=== PATIENT | male | born 1980 | race Caucasian/White ===

== ENCOUNTER 2018-11-07 16:55 | Emergency (ER) | payer MEDICAID ==
[~2018-11-07] VITALS: Ht 193 cm; Wt 94.3 kg
[2018-11-07 17:14] VITALS: Ht 193 cm; Wt 94.3 kg
[2018-11-07 18:44] LABS: BASOPHIL % 0.1 % (0-2); PLATELET COUNT 248 x10^3mcL (130-400); RED CELL DISTRIBUTION WIDTH 13.1 % (11.5-14.5)
[2018-11-07 19:02] LABS: ALKALINE PHOSPHATASE 119 U/L (46-116); ALT/SGPT 132 U/L (16-63); AST/SGOT 38 U/L (15-37); BILIRUBIN TOTAL 0.66 mg/dL (0.20-1.00); CALCIUM 8.3 mg/dL (8.5-10.1); CARBON DIOXIDE 26.6 mmol/L (21-32); CHLORIDE SERUM 101 mmol/L (98-107); GFR1 > 60 mL/min; GLUCOSE SERUM 165 mg/dL (74-106); SODIUM SERUM 138 mmol/L (136-145)
[2018-11-07 19:15] LABS: ALBUMIN 2.3 g/dL (3.4-5.0); TOTAL PROTEIN, SERUM 5.9 g/dL (6.4-8.2)
[2018-11-07 19:17] LABS: POTASSIUM SERUM 2.6 mmol/L (3.5-5.1)
[2018-11-07 22:53] VITALS: BP 121/84
== END 2018-11-07 22:53 | disposition home or self-care (01) ==
LOC: ED 16:55
PROVIDERS: Emergency Medicine
DX: L02.411 Cutaneous abscess of right axilla (principal); E87.6 Hypokalemia
CPT/HCPCS: 82962; J0696; J3480; J7030; J7050; Q0092

== ENCOUNTER 2018-11-14 08:37 | Emergency (ER) | payer MEDICAID ==
[~2018-11-14] VITALS: Ht 193 cm; Wt 93.2 kg
[2018-11-14 08:41] VITALS: Ht 193 cm; Wt 93.2 kg
[2018-11-14 11:25] VITALS: BP 120/80
== END 2018-11-14 11:25 | disposition home or self-care (01) ==
LOC: ED 08:37
DX: L02.411 Cutaneous abscess of right axilla (principal)
CPT/HCPCS: J0696; J2001

== ENCOUNTER 2018-11-16 09:49 | Emergency (ER) | payer MEDICAID ==
[~2018-11-16] VITALS: Ht 193 cm; Wt 93.0 kg
[2018-11-16 10:07] VITALS: Ht 193 cm; Wt 93.0 kg
[2018-11-16 11:50] VITALS: BP 130/82
== END 2018-11-16 11:50 | disposition home or self-care (01) ==
LOC: ED 09:49
DX: L02.411 Cutaneous abscess of right axilla (principal); K21.9 Gastro-esophageal reflux disease without esophagitis

== ENCOUNTER 2018-11-18 09:42 | Emergency (ER) | payer MEDICAID ==
[~2018-11-18] VITALS: Ht 193 cm; Wt 93.4 kg
[2018-11-18 11:49] VITALS: BP 114/80
== END 2018-11-18 11:49 | disposition home or self-care (01) ==
LOC: ED 09:42
DX: L02.411 Cutaneous abscess of right axilla (principal); A49.02 Methicillin resistant Staphylococcus aureus infection, unspecified site; K21.9 Gastro-esophageal reflux disease without esophagitis